=== PATIENT | male | born 1990 | race Caucasian/White ===

== ENCOUNTER 2022-12-06 19:16 | Emergency (ER) | payer OTHER ==
[~2022-12-06] VITALS: Ht 167.6 cm; Wt 68.2 kg
[~2022-12-06 19:16] MED LIST: NORCO 325 MG-7.1 TAB PO
[2022-12-06 19:30] VITALS: BP 112/53; TEMP 98.1
[2022-12-06 19:49] LABS: STREP SCREEN NEGATIVE
[2022-12-06 20:27] VITALS: PULSE 88
== END 2022-12-06 20:27 | disposition home or self-care (01) ==
LOC: COL.ER 19:16
PROVIDERS: Emergency Medicine
DX: J02.8 Acute pharyngitis due to other specified organisms (principal); B97.89 Other viral agents as the cause of diseases classified elsewhere; Z28.310 Unvaccinated for COVID-19